=== PATIENT | female | born 1960 | race Caucasian/White ===

== ENCOUNTER 2023-03-01 18:10 | Emergency (ER) | payer OTHER, SELFPAY ==
[2023-03-01 18:10] VITALS: BP 104/72; PULSE 56; RESP 14; TEMP 36.9; O2SAT 100; BMI 21.8
--- NOTE | 2023-03-01 19:12 | EDS_ITS ---
HPI History of Present Illness Chief Complaint: Syncope Informant: patient Onset/Context/Timing Onset: Today Narrative Narrative: Patient presents after syncopal episode at faith. She states she was standing between 2 pews to go receive communion. She members feeling sweaty and clammy. She states her vision went black. She states the next thing she knows she was sitting down. Her aunt is at bedside with her and states that the patient had leaned over the back of a pew and passed out briefly. Patient denies having any chest pain or palpitations. She was outside doing yard work earlier today without difficulty. [facility] Medical History (Updated 03/01/23 @ 21:[address] Julia Yang MD) Hypokalemia M?ni?re's disease Home Medications hydrochlorothiazide 25 mg tablet 25 mg PO DAILY 03/01/23 [History Last Taken Unknown] potassium chloride 10 mEq tablet,extended release 10 meq PO DAILY 03/01/23 [History Last Taken Unknown] potassium chloride 20 mEq tablet,extended release 40 meq (2 x 20 mEq) PO DAILY #8 tabs 03/01/23 [Rx Last Taken Unknown] Allergy/AdvReac Type Severity Reaction Status Date / Time No Known Allergies Allergy Verified 03/01/23 18:10 Social History Smoking Status: Never smoker ROS ROS ED Constitutional Constitutional ED: Denies chills or fever(s) Eyes Eyes: Denies discharge from eye(s) ENT ENT ED: Denies discharge from eye(s), rhinorrhea or sore throat Cardiovascular Cardiovascular: Denies chest pain or palpitations Respiratory/Chest Respiratory/Chest: Denies cough or dyspnea Gastrointestinal Gastrointestinal: Denies abdominal pain, diarrhea, nausea or vomiting Genitourinary Genitourinary ED: Denies dysuria Musculoskeletal Musculoskeletal: Denies back pain or extremity pain Integumentary Denies Abrasions or rash Neurologic Neurologic: Denies headache(s) or weakness Psychiatric Psychiatric: Denies anxiety or depression Allergic/Immunologic Allergic/Immunologic ED: Denies lip swelling or urticaria EXAM Physical Exam Const Vital Signs: 03/01/23 18:10 03/01/23 19:36 03/01/23 19:37 Temperature 98.4 F Temperature Source Oral Pulse Rate 56 L 66 Pulse Rate [Lying] Pulse Rate [Sitting (for 1 minute prior to obtaining)] Pulse Rate [Standing (for 1 minute prior to obtaining)] Respiratory Rate 14 13 Respiratory Effort Normal Non-Labored Respiratory Pattern Normal Blood Pressure 104/72 100/66 Blood Pressure [Lying] Blood Pressure [Sitting (for 1 minute prior to obtaining)] Blood Pressure [Standing (for 1 minute prior to obtaining)] Blood Pressure Mean 82 77 Blood Pressure Mean [Lying] Blood Pressure Mean [Sitting (for 1 minute prior to obtaining)] Blood Pressure Mean [Standing (for 1 minute prior to obtaining)] Pulse Ox 100 98 Oxygen Delivery Method Room Air Room Air 03/01/23 19:37 03/01/23 19:46 03/01/23 21:48 Temperature Temperature Source Pulse Rate 67 Pulse Rate [Lying] 64 Pulse Rate [Sitting (for 1 minute prior to obtaining)] 69 Pulse Rate [Standing (for 1 minute prior to obtaining)] 73 Respiratory Rate 18 Respiratory Effort Respiratory Pattern Blood Pressure 97/67 Blood Pressure [Lying] 105/73 Blood Pressure [Sitting (for 1 minute prior to obtaining)] 99/67 Blood Pressure [Standing (for 1 minute prior to obtaining)] 113/72 Blood Pressure Mean 77 Blood Pressure Mean [Lying] 83 Blood Pressure Mean [Sitting (for 1 minute prior to obtaining)] 77 Blood Pressure Mean [Standing (for 1 minute prior to obtaining)] 85 Pulse Ox 98 95 Oxygen Delivery Method Room Air Room Air 03/01/23 22:17 Temperature Temperature Source Pulse Rate 72 Pulse Rate [Lying] Pulse Rate [Sitting (for 1 minute prior to obtaining)] Pulse Rate [Standing (for 1 minute prior to obtaining)] Respiratory Rate 14 Respiratory Effort Respiratory Pattern Blood Pressure 101/73 Blood Pressure [Lying] Blood Pressure [Sitting (for 1 minute prior to obtaining)] Blood Pressure [Standing (for 1 minute prior to obtaining)] Blood Pressure Mean Blood Pressure Mean [Lying] Blood Pressure Mean [Sitting (for 1 minute prior to obtaining)] Blood Pressure Mean [Standing (for 1 minute prior to obtaining)] Pulse Ox 99 Oxygen Delivery Method Positive well nourished and well developed General Appearance ED: well developed HEENT Reports normocephalic and head/scalp atraumatic Eyes PERRL and EOMs intact bilaterally Neck supple Chest Wall inspection of chest normal and palpation of chest normal Resp normal respiratory effort and clear to auscultation bilaterally Cardio regular rhythm Rate: bradycardia GI non-tender Auscultation: hypoactive bowel sounds Palpation: soft Extremity normal to inspection Neuro oriented x3 and no sensory deficits noted Sensorium / Orientation: alert Motor Exam: strength 5/5 throughout Psych mental status grossly normal Skin no rashes or lesions noted MDM MDM MDM Narrative Medical decision making narrative: Patient placed on phototypesetting equipment monitor. Patient given small IV fluid bolus. EKG obtained to evaluate for cardiac arrhythmia/ischemia. Labwork obtained to evaluate for leukocytosis, anemia, and electrolyte derangement. Urinalysis obtained to evaluate for infection/hematuria. History & Record Review Discussion w/independent historian: Patient and Family Additional record(s) reviewed:: Prior labs Lab Data Attestation: I reviewed the patient's lab results. Labs: Laboratory Results - last 24 hr 03/01/23 03/01/23 19:30 20:46 WBC 5.7 RBC 4.41 Hgb 13.7 Hct 40.4 MCV 91.6 MCH 31.1 MCHC 33.9 RDW Std Deviation 40.4 RDW Coeff of [place] 11.9 Plt Count 317 MPV 10.1 Immature Gran % (Auto) 0.200 Neut % (Auto) 63.3 Lymph % (Auto) 25.5 [place] % (Auto) 7.9 Eos % (Auto) 1.9 Baso % (Auto) 1.2 H Absolute Neuts (auto) 3.6 Absolute Lymphs (auto) 1.46 Nucleated RBC % 0 Sodium 136 Potassium 2.9 L Chloride 98 Carbon Dioxide 32.0 Anion Gap 6 BUN 16 Creatinine 0.86 Estim Creat Clear Calc 59.32 Est GFR (MDRD) Af Amer 86 Est GFR (MDRD) Non-Af 71 BUN/Creatinine Ratio 18.6 Glucose 98 Calcium 9.0 Total Bilirubin 0.40 Direct Bilirubin 0.15 AST 20 ALT 25 Alkaline Phosphatase 70 Total Protein 7.1 Albumin 3.9 Globulin 3.2 Urine Color Yellow Urine Clarity Clear Urine pH 7.0 Ur Specific [place] 1.010 Urine Protein 15 H Urine Glucose (UA) Normal Urine Ketones 50 H Urine Occult Blood 10 H Urine Nitrite Negative Urine Bilirubin Negative Urine Urobilinogen Normal Ur Leukocyte Esterase 100 H Urine RBC 0-5 SEEN Urine WBC 5-10 SEEN Ur Squamous Epith Cells 0 SEEN Urine Bacteria RARE Hyaline Casts 5-10 SEEN Urine Mucus 0 SEEN EKG Initial EKG: Attestation: I personally reviewed and interpreted this EKG as follows: Interpretation: Sinus Bradycardia (Sinus bradycardia 57 bpm. No acute ischemia. Normal QTc at 404) Treatment and Re-Evaluation :: CBC was normal white count 5.7 with a hemoglobin of 13.7. Differential unremarkable. Chemistry studies significant for potassium of 2.9. Renal function is normal. LFTs are unremarkable. Urinalysis reveals 5-10 hyaline casts and 50 ketones. 5-10 white cells are noted with rare bacteria. Patient does not have any urinary symptoms. Patient does feel improved after IV fluids. She is able to ambulate down the correa and back without difficulty. She is given 40 mill equivalents of potassium replacement here. She normally takes 10 mill equivalents daily, however her pot assium is down when compared to prior labs. I will give her 4 additional days of 40 mill equivalents at home and then she can resume her 10 mill equivalents daily. Patient is comfortable with this plan. Discharge Plan Triage Chief Complaint: Syncope ED Provider: Julia Yang Dx/Rx/DC Orders Clinical Impression: Syncope, Hypokalemia Instructions: ED Hypokalemia, ED Fainting, Uncertain Cause Prescriptions: New potassium chloride 20 mEq tablet extended release 40 meq PO DAILY Qty: 8 0RF No Action hydrochlorothiazide 25 mg tablet 25 mg PO DAILY Patient Comments: take 1 tablet by mouth once daily potassium chloride 10 mEq tablet extended release 10 meq PO DAILY Primary Care Provider: Tommy Marrero Referrals: oTmmy Marrero MD [Primary Care Provider] - 1 Week Care Physician,No Primary [Non-Staff] - Disposition Disposition: Home, Self Care Discharge Date/Time: 03/01/23 22:18
[2023-03-01] MEDS: 0.9% Normal Saline (500mL Bag) 500 ML 999 ML IV (19:33)
[2023-03-01 19:37] VITALS: BP 100/66; PULSE 66; RESP 13; O2SAT 98
[2023-03-01 19:39] LABS: Absolute Lymphocyte Count 1.46 X10^3/uL (0.83-4.51); Absolute Neutrophil Count 3.6 X10^3/uL (2.0-7.7); Basophil# 0.07 X10^3/uL; Basophil% 1.2 % (0-1); Eosinophil# 0.11 X10^3/uL; Eosinophils% 1.9 % (0-5); Hematocrit 40.4 % (37-47); Hemoglobin 13.7 g/dL (12.0-15.0); Lymphocyte # 1.46 X10^3/ul (0.83-4.51); Lymphocyte % 25.5 % (19-41); Mean Corp Hgb Conc 33.9 g/dL (32-36); Mean Corpuscular Hgb 31.1 pg (27.0-32.0); Mean Corpuscular Volume 91.6 fL (81-99); Mean Platelet Vol. 10.1 fl (6.2-12.0); Monocyte# 0.45 X10^3/uL; Monocyte% 7.9 % (0-10); NRBC Flagged by Analyzer 0 % (0-5); Neutrophil # 3.62 X10^3/uL (2.7-7.7); Neutrophil % 63.3 % (47-70); Platelet Count 317 K/mm3 (150-450); RBC Distribution Width CV 11.9 % (11.6-14.6); RBC Distribution Width SD 40.4 fl (35.1-43.9); Red Blood Count 4.41 M/mm3 (4.2-5.4); White Blood Count 5.7 K/mm3 (4.4-11.0)
[2023-03-01 19:46] VITALS: BP 105/73; BP 113/72; BP 99/67; PULSE 64; PULSE 69; PULSE 73
[2023-03-01 19:54] LABS: AST(SGOT) 20 U/L (15-37); Alanine Aminotransfer ALT/SGPT 25 U/L (13-56); Albumin, Serum 3.9 g/dL (3.2-5.0); Alkaline Phosphatase 70 U/L (45-117); Anion Gap 6 (5-15); BUN 16 mg/dL (7-18); BUN/Creat Ratio 18.6 RATIO (10-20); Bilirubin, Direct 0.15 mg/dL (0.00-0.30); Chloride 98 mmol/L (98-107); Creatinine, Serum 0.86 mg/dL (0.55-1.02); EST Glomerular Filtration Rate 71 mL/min (>60); Est Glom Filt Rate - Afr Amer 86 mL/min (>60); Estimated Creatinine Clearance 59.32 ml/min; Globulin 3.2 g/dL (2.2-4.2); Glucose 98 mg/dL (74-106); Potassium 2.9 mmol/L (3.5-5.1); Protein, Total 7.1 g/dL (6.4-8.2); Sodium Level 136 mmol/L (136-145)
[2023-03-01 20:57] LABS: Mucous, Urine 0 SEEN /hpf (<or=2+); Squamous Epithelial Cells - UA 0 SEEN /hpf (5-10)
[2023-03-01 21:00] LABS: Color, Urine Yellow (Yellow); Glucose, Dipstick Normal (Normal); Ketone-Dipstick 50 mg/dl (Negative); Leukocyte Esterase-Dipstick 100 /ul (Negative); Nitrite-Dipstick Negative (Negative); Occult Blood-Urine 10 /ul (Negative); Protein-Dipstick 15 mg/dl (Negative); Urine Bilirubin Dipstick Negative (Negative); Urine Clarity Clear (Clear); Urine Urobilinogen Normal (Normal)
[2023-03-01 21:07] LABS: Red Blood Cells-Urine 0-5 SEEN /hpf (0-5)
[2023-03-01 21:08] LABS: Hyaline Cast 5-10 SEEN /lpf (0-5); White Blood Cells 5-10 SEEN /hpf (0-5)
[2023-03-01 21:09] LABS: Bacteria RARE /hpf (None Seen)
[2023-03-01 21:48] VITALS: BP 97/67; PULSE 67; RESP 18; O2SAT 95
[2023-03-01] MEDS: Potassium Chloride Oral Tablet 20 MEQ 40 MEQ PO (22:04)
[2023-03-01 22:17] VITALS: BP 101/73; PULSE 72; RESP 14; O2SAT 99
== END 2023-03-01 22:18 | disposition home or self-care (01) ==
PROVIDERS: Emergency Provider Emergency Medicine; PCP Family Medicine; Visit Provider Emergency Medicine
DX: R55 Syncope and collapse (principal); E87.6 Hypokalemia
CPT/HCPCS: 80048; 80076; 81001; 85025; 93005; 96360; 96361; 99284; J7040